=== PATIENT | female | born 1950 | race Caucasian/White ===

== ENCOUNTER 2016-07-09 08:06 | Day surgery (SDC) | payer MEDICARE ==
[~2016-07-09] VITALS: Ht 154.9 cm; Wt 84.7 kg
[~2016-07-09 08:06] MED LIST: 0.9% Sodium Chloride 1,000 ML IV PRN; GLPZ5T PO; LISI-567 PO; METF-496 PO; ONDA4TAB9 PO; OXYC1TAB24 PO; SIMV10TA4 PO; Sodium Chloride LOK Flush 10 mL Syringe IV PRN; fentaNYL-PF 50 mCg/mL 2 mL Inj IVPUSH PRN
[2016-07-09 08:40] VITALS: BP 158/74; PULSE 63; RESP 26; O2SAT 98
--- NOTE | 2016-07-09 10:04 | PCM.ENDCOL ---
Colonoscopy Date of Service: Jul 09, 2016 Physician Juan Pham MD Indication for Procedure Screening colon cancer. Diarrhea resolved. Post Procedure Dx & Findings: Polyps hemorrhoids diverticuliti Procedure Colonoscopy Prep adequate Withdrawal 22 minutes PROCEDURE IN DETAIL: After unremarkable active examination on this videocolonoscope was inserted into patient's anal canal dispensed the cecum. Landmarks were identified including the ileocecal valve and appendiceal orifice. Scope was withdrawn systematically. In the cecum, there were 2 polyps. These were 1 mm in size. They were resected completely using cold forcep. In the ascending colon there were 2 polyps and these are again 1 mm in size. These were resected completely with cold forcep. In the rectosigmoid junction, there were total of 4 polyps. 3 were 1 mm and they were resected completely using cold forcep. One was 2 mm which was resected completely using cold snare. Patient had several medium- sized diverticula in the sigmoid colon. The mucosa of the cecum, ascending, transverse, descending, sigmoid, rectal mucosa lined with whitish, pink, smooth, glistening, normal-appearing mucosa, normal fine branching, underlying vascularity, normal haustra. The patient tolerated procedure and was transported to observation area. In the rectum retroflexion was done which showed hemorrhoids. Anal canal was inspected carefully and the way out and mild hemorrhoids noted. Impression Polyp 7 status post complete removal Hemorrhoids Diverticulosis Diarrhea resolved Recommendation Repeat colonoscopy 3 years Diverticular diet Presedation Assessment Risks and Benefits Informed consent was obtained from the patient after all risks and benefits including but not limited to drug reaction, infection, pain, bleeding, perforation, as well as alternatives were discussed. Patient monitoring Continuous pulse oximetry, cardiac monitoring, blood pressure monitoring, IV access, and oxygen at 2L per nasal cannula. Periprocedural Fentanyl: Fentanyl 75mcg Incrementally Midazolam: Midazolam 4mg Incrementally Complications There were no periprocedural complications identified. Post Procedure Plan Post Procedure Recommendations 1. Restrict activities today. 2. Resume normal activities in the morning. 3. Resume medications. 4. Patient informed of normal post procedure side effects as bloating, drowsiness, blood streaking in the stool. 5. average risk CRCS. If colon polyps come back as: -Hyperplastic- can repeat colonoscopy in 10 years -Tubular adenoma- repeat colonoscopy in 5 years -Tubulovillous/villous adenoma- repeat colonoscopy in 3 years -If any dysplasia- return to clinic as soon as possible 6. Please don't hesitate to call me with any questions. Juan Pham MD Jul 09, 2016 10:04
[2016-07-09 10:07] VITALS: BP 139/76; PULSE 63; RESP 16; O2SAT 93
[2016-07-09 10:21] VITALS: BP 133/79; PULSE 59; RESP 16; O2SAT 95
--- NOTE | 2016-07-11 13:35 | PATH ---
SURGICAL PATHOLOGY Attending Physician:Juan Pham M.D. CASE STATUS: Signed Out PATIENT NAME: ALEC GONZALEZ PID: [id number] : 1950 DATE COLLECTED:07/09/2016 23:48 SPECIMEN: 1: Colon, Biopsy 2: Colon, Biopsy 3: Colon, Biopsy CLINICAL HISTORY: 1). CECAL POLYP 2). ASCENDING POLYP 3). RECTOSIGMOID POLYP FINAL DIAGNOSIS: 1.CECAL POLYP: POLYPOID-SHAPED FRAGMENT OF COLON MUCOSA ASSOCIATED WITH PROMINENT MUCOSAL LYMPHOID AGGREGATE. NEGATIVE FOR DYSPLASIA AND MALIGNANCY. 2.ASCENDING COLON POLYP: TUBULAR ADENOMA INVOLVING SINGLE BIOPSY FRAGMENT. 3.RECTOSIGMOID POLYP: HYPERPLASTIC POLYP INVOLVING THREE BIOPSY FRAGMENTS. ICD10 CODE D12.2 GROSS DESCRIPTION: The specimen is received in three formalin filled containers labeled with the patient's name. 1). The specimen is sublabeled "cecal polyp" and consists of 2 portions of tissue which aggregate to 0.3 x 0.3 x 0.2 CM. The specimen is entirely submitted in cassette 1A. 2). The specimen is sublabeled "ascending polyp" and consists of 2 portions of tissue which aggregate to 0.2 x 0.2 x 0.2 CM. The specimen is entirely submitted in cassette 2A. 3). The specimen is sublabeled "recto sigmoid polyp" and consists of 4 portions of tissue which aggregate to 0.4 x 0.4 x 0.3 CM. The specimen is entirely submitted in cassette 3A. 07/10/2016 [facility] MICRO DESCRIPTION: See diagnosis. ICD-9 CODES: CPT CODES: 1: 17391 2: 85831 3: 23042 Electronically Signed Out Cisco Shah MD [facility] [address], [place] [address] Technical component performed at [facility], [facility] [address], [place], [address]
== END 2016-07-09 23:59 | disposition home or self-care (01) ==
LOC: END 08:06
PROVIDERS: ATTEND Internal Medicine
DX: D12.0 Benign neoplasm of cecum (principal); D12.2 Benign neoplasm of ascending colon; D12.7 Benign neoplasm of rectosigmoid junction; K57.30 Diverticulosis of large intestine without perforation or abscess without bleeding; K64.8 Other hemorrhoids; R19.7 Diarrhea, unspecified; I10 Essential (primary) hypertension; Z79.899 Other long term (current) drug therapy

== ENCOUNTER 2016-12-17 10:19 | Emergency (ER) | payer MEDICARE ==
[~2016-12-17] VITALS: Ht 154.9 cm; Wt 84.1 kg
[~2016-12-17 10:19] MED LIST changes: -0.9% Sodium Chloride 1,000 ML IV PRN; -Sodium Chloride LOK Flush 10 mL Syringe IV PRN; -fentaNYL-PF 50 mCg/mL 2 mL Inj IVPUSH PRN
[2016-12-17 10:23] VITALS: BP 142/82; PULSE 64; RESP 12; O2SAT 98
--- NOTE | 2016-12-17 10:43 | ED.REPORT ---
HPI-Extremity Problem Lower Date of Service Dec 17, 2016 ED Provider: Jerry Belcher MD Pt is a 66 y/o female w/ a hx of NIDDM, HTN, HLD, presenting to the ED due to R toe injury which occurred today. The patient was walking up steps, her phone rang, and she turned around and while stepping downwards bent her toes backwards and caught herself on the railing before falling. She now c/o pain over the right 2nd and 3rd toes. She denies numbness/tingling, any other injury. Nursing Notes Stated Complaint: BROKEN TOES,RIGHT FOOT Chief Complaint: Extremity Trauma Nursing Notes Reviewed: Yes Allergies: Coded Allergies: No Known Allergies (Unverified , 07/06/16) Scheduled Glipizide (Glipizide) 5 Mg Tablet 5 MG PO DAILY Lisinopril (Lisinopril) 20 Mg Tablet 20 MG PO DAILY Metformin ER (Metformin ER) 1,000 Mg Tablet 1,000 MG PO DAILY Simvastatin (Simvastatin) 10 Mg Tablet 10 MG PO HS Scheduled PRN Ibuprofen (Ibuprofen) 800 Mg Tablet 800 MG PO TID PRN PRN For Pain Ondansetron ODT (Zofran ODT) 4 Mg Tablet 4 MG PO Q4H PRN PRN For Nausea oxyCODONE-Acetaminophen 5-325 mg (oxyCODONE-Acetaminophen 5-325 mg) 1 Each Tablet 1 TAB PO Q4H PRN PRN For Pain General Time Seen by MD: 10:38 Chief Complaint Foot injury right Hx Obtained From: Patient Arrived By: Walk-in Onset Occurred: 5 - 8 hours ago Symptom Duration: Since onset Caused by: Accidental Location: : Toe right 2: Toe right 3 Quality: Painful Severity: Current: Moderate Severity: Maximum: Moderate Recent Healthcare: No recent doctor visit, No recent hospitalization Similar Sx Previous: No Past Medical History Past Medical History Hypertension Hyperlipidemia NIDDM Arthritis Past Surgical History Cholecystectomy Smoking History Unknown if Ever Smoker Social History Alcohol Use: "Social" Drug Use: Denies drug use Other Social History: Good social support, , Local resident Ambulatory Status Independent Review of Systems Musculoskeletal: Reports: Extremity pain Neurologic: Denies: Numbness Complete sys rev & neg: except as marked. Physical Exam Initial Vital Signs Vital Signs (First) Date Time Temp Pulse Resp B/P Pulse Ox O2 Delivery O2 Flow Rate FiO2 12/17/16 10:23 36.8 64 12 142/82 98 Room Air Initial VS: Reviewed, Vital signs normal Head / Eyes: Atraumatic, Normocephalic ENT: Mucous membranes moist, Conjunctiva normal, No scleral icterus Neck: Supple, Full range of motion Respiratory: No respiratory distress Cardiovascular: Intact distal pulses Abdomen / GI: No distention Upper Extremities: Vascular intact, Neuro intact Skin: Warm, Dry, No cyanosis Neurologic: Alert, Oriented, Nonfocal Psychiatric: Mood/affect normal, Behavior normal, Normal thought content Lower Extremity / Pelvis / MS: Neurologic intact, Vascular intact Ankle / Foot: Neurologic intact, Vascular intact Tender over distal phalanx of right 3rd toe Sensation and strength intact General/Constitutional: Awake, Alert, No acute distress, Well appearing, Cooperative, Not toxic appearing Interpretation & Diagnostics X-Ray Interpretation Xray Interpretation: IMPRESSION: Nondisplaced dorsal avulsion fracture involving the base of the distal phalanx of the 3rd toe. Dictated by: Nathan Buckley M.D. on 12/17/2016 at 10:25 Approved by: Nathan Buckley M.D. on 12/17/2016 at 10:31 Study Performed: Toes right Interpretation / Wet Read by: Interpret - Radiologist Re-Eval/Medical Decision Med Decision/Clinical Course 66-year-old female with right third distal phalanx fracture. Neurovascularly intact. She was splinted jayne taped placed in a walking boot plans to follow up with primary doctor. Return precautions given. Re-Evaluation/Progress : Time of Eval: 11:43 Re-Evaluation/Progress Note: Pt rechecked. Discussed xray findigns. Informed pt of plan for discharge. Pt understands and agrees with plan for discharge. F/U instructions and RTER warnings given. All questions addressed. Counseled Regarding: Diagnosis, Need for follow-up, When/why to return to ED Discharge & Departure Impression: Primary Impression: Closed fracture of phalanx of right third toe Disposition: Home Discharge Condition All VS Reviewed: Yes Condition: Stable Patient Instructions: Toe Fracture (ED) Additional Instructions: You have a small fracture of the end of your 3rd toe. Use jayne tape and walking boot as long as you experience pain. Perform activities as tolerated. Take Ibuprofen 800 mg every 8 hours as needed for pain. Return to the emergency department if you experience numbness, tingling, or weakness of your toe, or for other concerning symptoms. Follow-up with your primary care doctor next week. Referrals: Kristin Levin PA-C (PCP) Scribe Attestation Portions of this note were transcribed by Jose D Soria. I, Dr. Belcher personally performed the history, physical exam and medical decision-making; I reviewed and confirmed the accuracy of the information in the transcribed note. Signed by Wyatt Ibarra, 12/17/16 - 1200 copies to: Kristin Levin PA-C, Ben M MD Dec 17, 2016 10:43 JOSE D SORIA Dec 17, 2016 11:41
--- NOTE | 2016-12-17 11:33 | DRSVH ---
PROCEDURE: X-RAY TOESS, TWO VIEWS INDICATIONS: trip rolled toes back heard crunching/pain TECHNIQUE: 4 views of the right toe(s) acquired. COMPARISON: None. FINDINGS: Bones: There is a very subtle dorsal avulsion fracture evident involving the distal phalanx of the 3r d toe, that extends into the distal interphalangeal joint. This is best appreciated on the lateral v iew. No additional acute fractures are evident. No suspicious osseous lesions are evident. Moderat e degenerative changes involving the forefoot joints are present. No dislocations. Soft tissues: No suspicious soft tissue densities. Soft tissue swelling about the toes are noted. IMPRESSION: Nondisplaced dorsal avulsion fracture involving the base of the distal phalanx of the 3rd toe. Dictated by: Nathan Buckley M.D. on 12/17/2016 at 10:25 Approved by: Nathan Buckley M.D. on 12/17/2016 at 10:31
[2016-12-17] MEDS ORDERED: IBUP800T28 PO (11:52)
[2016-12-17 12:07] VITALS: BP 154/84; PULSE 61; RESP 14; O2SAT 97
== END 2016-12-17 12:00 | disposition home or self-care (01) ==
LOC: SED 10:19
DX: S92.534A Nondisplaced fracture of distal phalanx of right lesser toe(s), initial encounter for closed fracture (principal); W18.43XA Slipping, tripping and stumbling without falling due to stepping from one level to another, initial encounter; Y93.01 Activity, walking, marching and hiking; Y92.89 Other specified places as the place of occurrence of the external cause; Y99.8 Other external cause status; I10 Essential (primary) hypertension; E78.5 Hyperlipidemia, unspecified; E11.9 Type 2 diabetes mellitus without complications; Z79.84 Long term (current) use of oral hypoglycemic drugs